=== PATIENT | female | born 1955 | race Two or more races ===

== ENCOUNTER 2024-10-01 07:16 | Outpatient (CLI) | payer OTHER | END 2024-10-01 07:17 | disposition home or self-care (01) | LOC: NUCLEAR 07:16 | DX: K80.20 Calculus of gallbladder without cholecystitis without obstruction (principal) | CPT/HCPCS: 78227; A9537 ==

== ENCOUNTER 2024-11-11 05:49 | Day surgery (SDC) | payer OTHER ==
[2024-11-04 11:04] LABS: URINE APPEARANCE Clear; URINE BILIRRUBIN Negative (NEGATIVE); URINE BLOOD Negative; URINE COLOR Yellow; URINE KETONE Trace (NEGATIVE); URINE LEUKOCYTE Negative; URINE NITRATE Negative; URINE PROTEIN Negative (NEGATIVE); URINE UROBILINOGEN 0.2 E.U./dl
[2024-11-04 11:09] LABS: BASO % 0.4 % (0.1-1.2); EOS # 0.14 (0.04-0.54); EOS % 1.4 % (0.7-7.0); LYMPH # 2.42 (1.18-3.74); LYMPH % 25.0 % (19.3-53.1); MEAN PLATELET VOLUME 11.70 fl (9.4-12.4); MONO # 1.18 (0.24-0.82); NEUT # 5.88 (1.56-6.13); NEUT % 60.8 % (34.0-71.1); RED CELL DISTRIBUTION WIDTH 15.5 % (11.6-14.4); URINE BACTERIA 73.1 uL (0.0-1933); URINE EPITHELIAL CELLS 9.5 uL (0.0-38.8); URINE RBC 4.2 uL (0.0-20.8); URINE WBC 48.3 uL (0.0-23.2)
[2024-11-04 11:19] LABS: MONO % 12.2 % (4.7-12.5)
[2024-11-04 11:23] VITALS: BP 130/70
[2024-11-04 11:30] LABS: INR 1.01
[2024-11-04 11:37] LABS: ALT/SGPT 17.0 U/L (12-78); AST/SGOT 17.0 U/L (15-37); BILIRUBIN TOTAL 0.31 mg/dL (0.3-1.2); BUN CREA RATIO 35.0 (7.0-25.0); CREATININE SERUM 0.4 mg/dL (0.55-1.02); GFR 159.21; GLOBULINA 3.5 G/DL (2.4-3.5); GLUCOSE FASTING 61.0 mg/dL (65-100); OSMOLALITY SERUM 282.0 MOSM/KG (275-295)
[2024-11-04 11:58] LABS: URINE CAST 0.00 uL (0.0-1.40); URINE GLUCOSE >=1000 MG/DL (NEGATIVE)
[~2024-11-11] VITALS: Ht 149.9 cm; Wt 60.8 kg
[~2024-11-11 05:49] MED LIST: CARBIDOPA-LEVO1 EAC4 PO; CLONAZEPAM0.5 MG PO; COZAAR50 MG PO; ETODOLAC300 MG PO; GLIMEPIRIDE4 M1 PO; SYNTHROID75 MCG PO; TRIJARDY XR 121 EACH PO
[2024-11-11] MEDS ORDERED: CEFAZOLIN SODIUM 1,000 MG VIAL IV ONE (08:15)
[2024-11-11] MEDS ORDERED: SUGAMMADEX SODIUM 200 MG/2 ML VIAL IV ONE (09:30)
[2024-11-11] MEDS ORDERED: MORPHINE SULFATE 4 MG/ML VIAL IV ONE ×3 (09:40→10:40)
== END 2024-11-11 14:00 | disposition home or self-care (01) ==
LOC: CIR.AMB 05:49
PROVIDERS: ATTEND Surgery
DX: K80.10 Calculus of gallbladder with chronic cholecystitis without obstruction (principal); Z88.2 Allergy status to sulfonamides